=== PATIENT | female | born 1960 | race Caucasian/White ===

== ENCOUNTER 2017-02-01 06:46 | Inpatient (IN) | payer BC ==
[~2017-02-01] VITALS: Ht 157.5 cm; Wt 92.7 kg
[~2017-02-01 06:46] MED LIST: ALLEGRA ALLERG180 MG PO; ANTI-DIARRHEA2 MG PO; ASCORBIC ACID500 M3 PO; ASPIRIN81 M1 PO; ASPIRIN81 M2 PO; CEPHALEXIN500 M1 PO; COLACE100 MG PO; DIFLUCAN100 MG PO; DOCUSATE SODIU100 MG PO; ELAVIL10 MG PO; ESTRACE0.5 MG PO; ESTRADIOL0.5 MG PO; ESTROGEN; FOLIC ACID1 MG PO; IBUPROFEN800 MG PO; METFORMIN HCL500 MG PO; MULTIVITAMINS1 EAC2 PO; PERCOCET 10/1 TABLET PO; PYRIDIUM100 MG PO; SENOKOT S,PE1 TABLET PO; SILVADENE20 GM TP; TREXALL15 MG PO; VITAMIN E400 UNIT PO; ZETIA10 MG PO; ZOLOFT50 MG PO
[2017-02-01 07:22] VITALS: BP 152/86
[2017-02-01 07:28] VITALS: BP 152/86
[2017-02-01 07:32] LABS: POINT-OF-CARE METER ID UU14174212
[2017-02-01 09:45] LABS: POINT-OF-CARE METER ID UU13113675
[2017-02-01 12:03] VITALS: BP 120/62
[2017-02-01 15:17] VITALS: BP 119/56
[2017-02-01 16:33] LABS: HEMATOCRIT 38.9 % (36.0-46.0); MCH 26.6 PG (29.0-34.0); MCHC 31.6 G/DL (30.0-36.0); MCV 84.2 FL (83-99); MEAN PLAT.VOLUME 9.9 uM^3 (9.5-12.4); PLATELET COUNT 160 K/uL (156-360); RBC DIS.WIDTH-CV 15.3 % (11.8-14.6); RBC DIS.WIDTH-SD 46.3 % (39-53); RED BLOOD COUNT 4.62 M/uL (3.80-5.20); WHITE BLOOD COUNT 7.4 K/uL (4.1-10.2)
[2017-02-01 16:56] LABS: CHLORIDE 103 mEq/L (99-109); POTASSIUM 4.2 mEq/L (3.7-5.4); SODIUM 139 mEq/L (136-147)
[2017-02-01 16:58] LABS: GLUCOSE 167 mg/dL (70-99)
[2017-02-01 16:59] LABS: ANION GAP 10 MEQ/L (2-14)
[2017-02-01 17:02] LABS: GFR ESTIMATE (CALCULATED) > 59 mL/min/
[2017-02-01 17:03] LABS: UREA NITROGEN (BUN) 15 mg/dL (9-23)
[2017-02-01 20:20] VITALS: BP 103/58
[2017-02-02 00:12] VITALS: BP 96/47
[2017-02-02 04:20] VITALS: BP 97/53
[2017-02-02 06:26] LABS: HEMATOCRIT 36.4 % (36.0-46.0); MCH 26.8 PG (29.0-34.0); MCHC 31.9 G/DL (30.0-36.0); MCV 84.1 FL (83-99); PLATELET COUNT 152 K/uL (156-360); RBC DIS.WIDTH-CV 15.2 % (11.8-14.6); RED BLOOD COUNT 4.33 M/uL (3.80-5.20); WHITE BLOOD COUNT 6.8 K/uL (4.1-10.2)
[2017-02-02 06:28] VITALS: BP 115/56
[2017-02-02 06:53] LABS: ANION GAP 7 MEQ/L (2-14); CHLORIDE 103 MEQ/L (99-109); GFR ESTIMATE (CALCULATED) > 59 mL/min/; GLUCOSE 132 mg/dL (70-99); POTASSIUM 3.8 MEQ/L (3.7-5.4); SAMPLE HEMOLYSIS CHECK 0; SAMPLE ICTERIC CHECK 0; SAMPLE LIPEMIA CHECK 0; SODIUM 139 MEQ/L (136-147); UREA NITROGEN (BUN) 13 mg/dL (9-23)
[2017-02-02 11:38] LABS: POINT-OF-CARE METER ID UU14162508
[2017-02-02 12:14] VITALS: BP 118/55
[2017-02-02 15:35] VITALS: BP 96/53
[2017-02-02 16:01] LABS: POINT-OF-CARE METER ID UU14162508
[2017-02-03 00:06] VITALS: BP 121/59
[2017-02-03 04:00] VITALS: BP 124/77
[2017-02-03 05:28] LABS: CHLORIDE 104 mEq/L (99-109); POTASSIUM 3.8 mEq/L (3.7-5.4); SODIUM 140 mEq/L (136-147)
[2017-02-03 05:30] LABS: GLUCOSE 102 mg/dL (70-99)
[2017-02-03 05:31] LABS: ANION GAP 8 MEQ/L (2-14)
[2017-02-03 05:33] LABS: HEMATOCRIT 39.3 % (36.0-46.0); MCH 26.7 PG (29.0-34.0); MCHC 31.3 G/DL (30.0-36.0); MCV 85.4 FL (83-99); MEAN PLAT.VOLUME 10.3 uM^3 (9.5-12.4); PLATELET COUNT 154 K/uL (156-360); RBC DIS.WIDTH-CV 15.5 % (11.8-14.6); RBC DIS.WIDTH-SD 47.9 % (39-53); WHITE BLOOD COUNT 6.7 K/uL (4.1-10.2)
[2017-02-03 05:34] LABS: GFR ESTIMATE (CALCULATED) > 59 mL/min/
[2017-02-03 05:35] LABS: UREA NITROGEN (BUN) 12 mg/dL (9-23)
[2017-02-03 07:01] VITALS: BP 113/53
== END 2017-02-03 10:34 | disposition home or self-care (01) | DRG 747 ==
LOC: SDC 06:46 → 2SOUTH 09:56 → 2EAST 09:56 → SDC 14:58 → 2EAST 02-03 10:34
PROVIDERS: Obstetrics & Gynecology Gynecologic Oncology
DX: D07.1 Carcinoma in situ of vulva (principal); C44.529 Squamous cell carcinoma of skin of other part of trunk; E78.5 Hyperlipidemia, unspecified; G47.33 Obstructive sleep apnea (adult) (pediatric); E11.9 Type 2 diabetes mellitus without complications; B00.9 Herpesviral infection, unspecified; F41.9 Anxiety disorder, unspecified; K75.81 Nonalcoholic steatohepatitis (NASH); E66.9 Obesity, unspecified; E04.1 Nontoxic single thyroid nodule; Z68.37 Body mass index [BMI] 37.0-37.9, adult; Z82.3 Family history of stroke; Z82.49 Family history of ischemic heart disease and other diseases of the circulatory system
CPT/HCPCS: 36415; 80048; 82948; 85027; 86900; 86901; 86920; 88307; 88342 TC; J0690; J1170; J1650; J1815; J2250; J2270; J2405; J3010; J7120